=== PATIENT | female | born 1980 | race Caucasian/White ===

== ENCOUNTER 2016-12-01 13:34 | Emergency (ER) | payer OTHER ==
[2016-12-01 14:24] LABS: ABSOLUTE NEUTROPHIL COUNT 4.1 K/mm3 (1.8-7.7); BASO % 0.6 % (0.2-1.0); EOS # 0.1 (0.0-0.5); EOS % 1.8 % (0.9-2.9); HEMATOCRIT 37.3 % (37.0-47.0); HEMOGLOBIN 11.7 gm/l (12.0-16.0); IMM NEUT% 0.3 % (0-1); LYMPH # 2.1 (1.0-4.8); LYMPH % 30.7 % (15-45); MEAN CELL VOLUME 77.4 fl (81.0-99.0); MEAN CORPUSCULAR HEMOGLOBIN 24.3 pg (27.0-31.0); MEAN CORPUSCULAR HGB CONC 31.4 g/dl (33.0-37.0); MEAN PLATELET VOLUME 9.2 fl (7.4-10.4); MONO # 0.4 (0.0-0.8); MONO % 6.4 % (4-12); NEUT % 60.2 % (43-75); PLATELET COUNT 497 K/mm3 (130-400); RED CELL DISTRIBUTION WIDTH 14.7 % (11.5-14.5)
[2016-12-01 14:36] LABS: ALB/GLOB RATIO 1.4 (>1.0); ALBUMIN 3.8 gm/dL (3.5-5.7); CALCIUM 8.9 mg/dL (8.6-10.3)
--- NOTE | 2016-12-01 14:48 | RAD ---
History: Chest pain with nausea. Comparison: None. Technique: 2 views Findings: The soft tissue and bony structures are appropriate. The examination demonstrates a low inspiratory volume. No gross consolidation, effusion or pneumothorax is seen. The hilar and mediastinal structures are intact. Impression: 1. A low inspiratory volume. 2. No active intrathoracic process.
[2016-12-01] MEDS ORDERED: MORPHINE SULFATE 4 MG/ML SYRINGE ONE (14:51)
[2016-12-01] MEDS ORDERED: PROCHLORPERAZINE 5 MG/ML 2 ML VIAL ONE (14:51)
--- NOTE | 2016-12-01 15:40 | US ---
ABDOMINAL-LIMITED History: Chest pain for one month with tachycardia and vomiting. Findings: Gallbladder: The gallbladder is not distended. No evidence of cholelithiasis, gallbladder wall thickening, or edilberto-cholecystic fluid is seen. Biliary tree: The common hepatic duct measures 2.1 millimeters adjacent to the hepatic artery. Liver: the visualized liver is homogeneous. No masses or evidence of intra-hepatic biliary dilatation are seen. Impression: 1. No evidence of cholelithiasis or biliary dilatation.
[2016-12-01 15:52] LABS: SPECIFIC GRAVITY 1.025 (1.001-1.030); URINE BILIRUBIN NEGATIVE (NEGATIVE); URINE BLOOD 4+ (NEGATIVE); URINE GLUCOSE (UA) NEGATIVE (NEGATIVE); URINE LEUKOCYTE ESTERASE NEGATIVE (NEGATIVE); URINE NITRITE NEGATIVE (NEGATIVE); URINE PROTEIN NEGATIVE (NEGATIVE); URINE UROBILINOGEN NORMAL (0-1 mg/dl)
[2016-12-01 16:00] LABS: URINE APPEARANCE SL CLOUDY; URINE COLOR YELLOW
[2016-12-01 16:05] LABS: HCG,QUALITATIVE URINE NEGATIVE
[2016-12-01 16:09] LABS: URINE RBC 50-75 /hpf
[2016-12-01 16:10] LABS: URINE BACTERIA 1+; URINE EPITHELIAL CELLS 0-2 /hpf
== END 2016-12-01 16:08 | disposition home or self-care (01) ==
LOC: ED 13:34
DX: R07.9 Chest pain, unspecified (principal); R11.10 Vomiting, unspecified; R00.0 Tachycardia, unspecified; I45.6 Pre-excitation syndrome
CPT/HCPCS: 83690; 85379; 81025; 84703; 85025; 87086; 80053; 84484; 81001; 71020; 76705; 96375; 99284 ×2; 96374; 93005; J0780; J2270

== ENCOUNTER 2017-01-14 12:11 | Emergency (ER) | payer OTHER ==
[2017-01-14 13:03] LABS: PH,URINE 6.5 (5.0-8.0); URINE BILIRUBIN NEGATIVE (NEGATIVE); URINE BLOOD NEGATIVE (NEGATIVE); URINE GLUCOSE (UA) NEGATIVE (NEGATIVE); URINE LEUKOCYTE ESTERASE NEGATIVE (NEGATIVE); URINE NITRITE NEGATIVE (NEGATIVE); URINE PROTEIN NEGATIVE (NEGATIVE); URINE UROBILINOGEN NORMAL (0-1 mg/dl)
[2017-01-14 13:05] LABS: HCG,QUALITATIVE URINE NEGATIVE; URINE APPEARANCE CLEAR; URINE COLOR YELLOW
[2017-01-14 14:39] LABS: ABSOLUTE NEUTROPHIL COUNT 11.5 K/mm3 (1.8-7.7); BASO # 0.1 K/mm3 (0.0-0.2); BASO % 0.3 % (0.2-1.0); EOS % 0.1 % (0.9-2.9); HEMATOCRIT 37.5 % (37.0-47.0); HEMOGLOBIN 11.7 gm/l (12.0-16.0); IMM NEUT # 0.1 K/mm3 (0-0.2); IMM NEUT% 0.3 % (0-1); LYMPH % 13.4 % (15-45); MEAN CELL VOLUME 77.2 fl (81.0-99.0); MEAN CORPUSCULAR HEMOGLOBIN 24.1 pg (27.0-31.0); MEAN CORPUSCULAR HGB CONC 31.2 g/dl (33.0-37.0); MEAN PLATELET VOLUME 9.3 fl (7.4-10.4); MONO # 1.2 (0.0-0.8); MONO % 7.8 % (4-12); NEUT % 78.1 % (43-75); PLATELET COUNT 426 K/mm3 (130-400); RED CELL DISTRIBUTION WIDTH 14.4 % (11.5-14.5)
[2017-01-14 14:58] LABS: ALB/GLOB RATIO 1.2 (>1.0); ALBUMIN 3.7 gm/dL (3.5-5.7); CALCIUM 8.9 mg/dL (8.6-10.3)
[2017-01-14] MEDS ORDERED: ONDANSETRON 4 MG/2ML 2 ML VIAL ONE (15:07)
[2017-01-14] MEDS ORDERED: NALBUPHINE HCL 10 MG/ML AMP ONE (15:07)
--- NOTE | 2017-01-14 15:57 | RAD ---
01/14/2017 3:52 PM ABDOMEN FLAT AND UPRIGHT HISTORY: Pain, constipation and vomiting. COMPARISON: No comparison TECHNIQUE: Upright and supine views FINDINGS: There is no evidence of free intra-abdominal gas. Much of the descending colon is decompressed limiting assessment. Prominent bowel loops are seen within the left upper quadrant, dilated by size criteria though no air-fluid levels are seen. Findings could represent early ileus or obstruction. Moderate amount of stool is present in the ascending colon. Osseous structures intact. IMPRESSION: Moderate amount stool in the ascending colon. Prominent dilated loops of small bowel in the left upper quadrant without air-fluid levels. Findings could relate to early ileus or obstruction. Follow-up as clinically warranted.
[2017-01-16 13:32] LABS: CHLAMYDIA BD Negative (Negative); N.GONORRHOEAE BD Negative (Negative); SOURCE Urine (())
== END 2017-01-14 17:05 | disposition home or self-care (01) ==
LOC: ED 12:11
DX: K59.00 Constipation, unspecified (principal); R11.10 Vomiting, unspecified; Z79.891 Long term (current) use of opiate analgesic; Z79.899 Other long term (current) drug therapy; Z88.5 Allergy status to narcotic agent; Z88.0 Allergy status to penicillin; Z88.8 Allergy status to other drugs, medicaments and biological substances; Z91.040 Latex allergy status
CPT/HCPCS: 83690; 87491; 87591; 81025; 85025; 80053; 81003; 74020; 96375; 99283 ×2; 96374; J2300; J2405